=== PATIENT | male | born 1990 | race Caucasian/White ===

== ENCOUNTER → 2020-09-03 11:49 | Outpatient (CLI) | payer OTHER, SELFPAY ==
--- NOTE | 2020-09-03 12:01 | DI.RAD.S_ITS ---
PROCEDURE: XR THORACIC SPINE 3V INDICATIONS: right anterior pain for years TECHNIQUE: 3 views of the thoracic spine were acquired. COMPARISON: None. FINDINGS: Bones: No fractures or dislocations. No suspicious bony lesions. 12 pairs of ribs are noted, and appear intact where visualized. Soft tissues: No paravertebral stripe thickening. IMPRESSION: Thoracic spine plain films within normal limits. Dictated by: Ronen Aj M.D. on 09/03/2020 at 12:07 Approved by: Ronen Aj M.D. on 09/03/2020 at 12:07
== END ==
PROVIDERS: Referring Provider Chiropractor; Visit Provider Chiropractor
DX: S23.3XXA Sprain of ligaments of thoracic spine, initial encounter (principal); X58.XXXA Exposure to other specified factors, initial encounter
CPT/HCPCS: 72072

== ENCOUNTER → 2021-07-31 12:21 | Outpatient (CLI) | payer OTHER, SELFPAY ==
[2021-07-31 20:30] LABS: Hepatitis B Surface Antigen NEGATIVE s/c (NEGATIVE)
[2021-07-31 20:49] LABS: HIV 1 & 2 Ab/Ag 4th Gen Combo NEGATIVE (NEGATIVE); Hep C Virus Ab w/Reflex Quant NEGATIVE s/c (NEGATIVE)
[2021-08-02 07:30] LABS: HSV 2 IGG AB < 0.91 index (0.00-0.90); RPR Screen Non Reactive (Non Reactive)
[2021-08-03 03:56] LABS: Chlamydia trachomatis NAA Negative (Negative); Neisseria gonorrhoeae NAA Negative (Negative)
== END ==
PROVIDERS: PCP Physician Assistant; Referring Provider Physician Assistant; Visit Provider Physician Assistant
DX: Z11.3 Encounter for screening for infections with a predominantly sexual mode of transmission (principal)
CPT/HCPCS: 86592; 86695; 86696; 86803; 87340; 87389; 87491; 87591